=== PATIENT | female | born 1950 | race Caucasian/White ===

== ENCOUNTER 2022-02-22 16:50 | Outpatient (CLI) | payer MEDICARE, SELFPAY ==
[2022-02-22 18:37] LABS: Vitamin B12* 680 pg/mL (243-894)
== END 2022-02-22 16:51 | disposition home or self-care (01) ==
LOC: NFLDREF 16:51
PROVIDERS: PCP Internal Medicine; Visit Provider Internal Medicine
DX: G62.9 Polyneuropathy, unspecified (principal); R03.0 Elevated blood-pressure reading, without diagnosis of hypertension; N13.9 Obstructive and reflux uropathy, unspecified
CPT/HCPCS: 82607

== ENCOUNTER 2022-04-25 13:54 | Outpatient (CLI) | payer MEDICARE, SELFPAY ==
--- NOTE | 2022-04-25 14:00 | CRLHL7_ITS ---
For Patients: As a result of the Century Cures Act, medical imaging exams and procedure reports are released immediately into your electronic medical record. You may view this report before your referring provider. If you have questions, please contact your health care provider. BILATERAL SCREENING MAMMOGRAM WITH COMPUTER-AIDED DETECTION TECHNIQUE: CC and MLO views were obtained. These mammographic images have been obtained using full-field digital technique. These mammographic images were interpreted with the benefit of computer-aided detection. COMPARISON FILM: Baseline. No prior. FINDINGS: The breasts are almost entirely fatty IMPRESSION: There is no radiographic evidence for malignancy. ASSESSMENT: BI-RADS Category 2: Benign RECOMMENDATION: Routine screening mammogram in 1 year. A lay language report of this examination will be provided to the patient. Michael Perez M.D. Diagnostic Radiologist [email or web address] LAUREANO/Dictated by: Michael Perez MD @ 04/26/2022 8:35:00 AM (Electronically Signed)
--- NOTE | 2022-04-25 14:30 | CRLHL7_ITS ---
For Patients: As a result of the Century Cures Act, medical imaging exams and procedure reports are released immediately into your electronic medical record. You may view this report before your referring provider. If you have questions, please contact your health care provider. DXA BONE MINERAL DENSITY STUDY, 04/25/2022 Current height (in): 67.0. Weight (lb): 295.0. Menopause age: 48. Ethnicity: White. 1. Have you had a previous hip or vertebral fracture? No. 2. Have you had any fractures during your adult life which did not result from significant trauma (e.g., auto accident)? No. 3. Did either of your parents have a hip fracture? No. 4. Do you smoke? No. 5. Have you ever taken Glucocorticoids? No. 6. Do you have rheumatoid arthritis? No. 7. Do you have secondary osteoporosis? No. 8. Do you drink 3 or more alcoholic drinks per day? No. 9. Are you being treated for osteoporosis? No. 10. Have you ever taken any of the following medications: Actonel, Evista, Fosamax, Miacalcin, Reclast, Boniva, Forteo, HRT (i.e. estrogen/hormone therapy), Protelos, Prolia, Vitamin D, Calcium, other ??? please specify. ANSWER: Yes, Vitamin D. 11. Do you have any of the following medical conditions: Anorexia or bulimia, asthma or emphysema, end stage renal disease, hyperparathyroidism, any seizure disorders, cancer, inflammatory bowel diseases, hysterectomy, other ??? please specify. ANSWER: Yes, Hysterectomy. 12. What was your maximum height (inches)? 67. 13. Do you perform weight bearing exercise regularly? No. 14. Do you regularly consume dairy products? Yes. 15. Do you drink caffeinated beverages? No. 16. At what age did your period start? 14. 17. Are you premenopausal? No. 18. How many full term pregnancies have you had? 3. 19. Have you ever missed your period for more than 6 months in a row (not including or menopause)? No. TECHNIQUE: Bone mineral density study was performed using the [employer]. FINDINGS: The results of the study expressed as bone mineral density (BMD) are as follows: Lumbar spine L1 to L3: BMD: 1.081 g/cm2. T-score: 0.6. Z-score: 2.7. Neck Left: BMD: 0.666 g/cm2. T-score: -1.6. Z-score: 0.2. Right: BMD: 0.821 g/cm2. T-score: -0.3. Z-score: 1.6. Total Left: BMD: 0.763 g/cm2. T-score: -1.5. Z-score: 0.1. Right: BMD: 0.953 g/cm2. T-score: 0.1. Z-score: 1.6. IMPRESSION: Osteopenia. *Comparison exams done prior to 01/2020 were performed on different unit, [employer]. Michael Perez M.D. Diagnostic Radiologist [email or web address] CHULA/shivani JR/Dictated by: Michael Perez MD @ 04/26/2022 9:08:00 AM (Electronically Signed)
== END 2022-04-25 13:55 | disposition home or self-care (01) ==
LOC: MAMMO 13:54
PROVIDERS: PCP Internal Medicine; Visit Provider Internal Medicine
DX: Z12.31 Encounter for screening mammogram for malignant neoplasm of breast (principal); Z78.0 Asymptomatic menopausal state; M85.89 Other specified disorders of bone density and structure, multiple sites
CPT/HCPCS: 77063; 77067; 77080

== ENCOUNTER 2024-09-01 09:15 | Outpatient (RCR) | payer MEDICARE, SELFPAY ==
[2024-06-03 08:33] VITALS: BMI 43.4
[2024-06-03 12:25] VITALS: BMI 43.4
[2024-06-08 13:26] VITALS: BMI 43.4
[2024-06-10 08:29] VITALS: BMI 43.4
[2024-06-17 11:55] VITALS: BMI 43.4
[2024-06-22 07:54] VITALS: BMI 43.4
[2024-06-24 12:53] VITALS: BMI 43.4
[2024-07-01 10:50] VITALS: BMI 43.4
[2024-07-13 08:57] VITALS: BMI 42.0
[2024-07-15 08:15] VITALS: BMI 42.0
--- NOTE | 2024-07-15 10:41 | OT.OPLDN2 ---
OT Outpatient Lymphedema Daily Note OT Outpatient Lymphedema Daily Note* Start: 06/03/24 08:33 Freq: Status: Active Protocol: Document 07/15/24 08:15 MARCO A (Rec: 07/15/24 10:37 LULÚNidia [id number]) E-signed By Yamile Crane OTSarah/Elizabeth, TANT Type of Note Type of Note Type of Note Daily Note,Recert/Progress Note Visit Number 9 Comments PROGRESS NOTE 07/15/24 Insurance Information Insurance Information Insurance Information Medicare B,[facility] Height and Weight Height Height 170.18 cm Weight Weight 121.563 kg Weight Measurement Method Standing Scale BMI Body Mass Index (kg/m?) 42.0 BMI Classification Extreme Obesity Obesity Class III Home Program Home Program Home Program Compliant Home Program Specifics 1. Start by clearing the lymph nodes. Neck, under arm, groin , behind knee ? 10 times Armpit/Axilla ? 10 times, Groin ? 10 times, Knee ? 10 times 2. Diaphragmatic breathing ? Inhale through your nose. As you breathe in, your stomach should push out and your upper chest should move as little as possible. Exhale through your mouth, letting your stomach sink back in as you slowly bend at the hips. Repeat up to 5 repetitions. 3. Hip flexion a. Lying ? Bring your knee up toward your chest as far as possible, then back down. b. Sitting ? Bring your knee up toward your chest, then back down, as if marching in place. c. Standing ? While holding onto a stable surface, bring your knee up toward your chest as far as possible, then back down, as if marching in place 4. Hip abduction a. Lying on your back, slide your leg out to the side, then back in. Keep your knee straight & toes pointing straight up. b. Standing ? While holding onto a stable surface, bring your leg out to the side, then back in. Keep your knee straight & toes pointed forward. 5. Knee flexion and extension a. Lying ? Slide your heel up toward your hips, bending at your knees, then back down. b. Sitting ? Raise your foot up, straightening your knee as far as possible, then bend your knee back as far as possible. c. Standing ? While holding onto a stable surface, raise your foot back, bending your knee as far as possible, then straighten your knee and rest your foot on the floor. 6. Ankle pumps a. Lying ? Pull your foot/toes up toward you as far as possible, then point them down . b. Sitting ? Pull your foot/ toes up toward you as far as possible, then point them down . 7. Ankle circles Lying or sitting ? Move your ankle in a saxman clockwise, making as large of a saxman as possible. Repeat in counterclockwise direction. 8. Toe scrunches Lying or sitting ? Curl your toes down as far as possible, then pull them up as far as possible. Repeat all exercises in reverse order, starting with with #8 and ending with node clearing. OT OP Lymphedema Daily/Progress Note Current Condition/Medical Diagnosis Referring Provider Dipti Mckinnon PA-C Treatment Diagnosis Lymphedema, I89.0 Date Of Onset Gradual over time, last year pt had to get size 11 shoes ( was size 10) Other Precautions Weight: 02/22/22 patient was at 294 lb (patient's weight is down 17 lbs); She weighed 268 lbs when at the 's office on Jul 01, 2024 Medical History Medical History Cancer Treatment/Surgery Medical History Comments Morbid Obesity Lymphedema Prediabetes (Chronic 11/2021) R73.03: Dxed 12/01 Peripheral neuropathy (Chronic 11/2021) G62.9 12/01, referred to [facility]/Dr. Duque 12/31 with his plan noted to do lower extremity EMG (non- diagnostic due to lower extremity edema/lymphedema/ habitus), CORPORATE DEVELOPMENT OFFICER Suzi Daniels 03/02 felt symptoms consistent with large fiber neuropathy, and was doing blood work (which was normal). No plan for medication given only sporadic pain History of endometrial cancer (Chronic 2009) Z85.42 s/p BRITTNEY-BSO, pelvic and periaortic lymph node dissection and Patel urethropexy by Dr. Bryan for a Stage I, Grade 1 endometrial cancer 2009 Hyperlipidemia (Chronic) Borderline. LDL 129 on 12/01 NEW *07/01/24 diagnosed with A -fib and was referred to a [facility] K[facility] Boiler (apt made for Jul 2024) Surgical History Surgical History Hysterectomy in 2009 -History of endometrial cancer (Chronic 2009) Z85.42 s/p BRITTNEY-BSO, pelvic and periaortic lymph node dissection and Patel urethropexy by Dr. Bryan for a Stage I, Grade 1 endometrial cancer 2009 Medications Medications Only takes Vit D3 & a Daily Multivitamin Contraindications Contraindications General Family History Family History of Lymphedema Yes Family History of Lymphedema Comments Her mother had Lymphedema ( unknown cause) Daughter has Lymphedema from Lymph Node Removal Current Work Status Current Work Status Retired Subjective Subjective 07/15/24: Patient is here today for her 9th treatment session, plan of care began on 06/03/24. Patient has been successfully wearing her Short Stretch bandages daily since Jun 08, 2024 (>5 weeks). Last month, she ordered a wedge for elevating bilateral legs (does this daily for 1 hour or longer) and reports doing her HEP daily. She is very pleased with how much her legs are reducing in size. She states that she has been able to wear old shoes again that she hasn't worn in years. NEW *07/01/24 diagnosed with A-fib and was referred to a [facility] Boiler (apt made for Jul 2024). Despite all conservative measures taken over the past 5+ weeks ( compression to bilateral LE's, daily elevation for 1 hour or more a day and daily home exercise, patient still has significant trunk/abdominal/ hip/upper thigh swelling as well as bilateral LE fibrosis, hemosiderin staining, hyperkeratosis and limited skin mobility. 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 3 adult daughters, 1 in [place] and the other 2 in the [facility] Patient Difficulties Difficulties With Any Of The Following Walking,Dressing,Reaching Feet & Toes,Bathing/Showering, Preparing Meals,Sleeping In Bed Patient Difficulties Comments Stairs, Bending down to her feet, Transfers Impairments Impairments Loss of Mobility,Difficulties With ADLs,Limb Heaviness,Poor Clothing Fit Problem List Problem List Limited Knowledge of Lymphedema Treatment/Condition /Precautions,Limited Knowledge of Skin Care & Infection Precautions,Significant Risk For Infection For Lymphedema Related Complications,Does Not Have a HEP,Does Not Know How To Bandage For Limb Reduction, Does Not Have Appropriate Compression Garments For LT Management,Presents With Increased Fall Risk Secondary To Lymphedema,Presents With Impaired Mobility/ROM,Lack Of Caregiver Support Exercise History Does Patient Exercise Regularly No Exercise Comments Patient is open to any/all recommendations Pain Pain No Pain Comments Bilateral LE Neuropathy but patient states this is annoying more than painful Previous Treatment Previous Treatment/Current Home Program Patient had never been seen by a Lymphedema Therapist before Compression History Does Patient Currently Wear Compression No During Daytime Compression During Daytime Comments Patient is open to any/all recommendations Does Patient Currently Wear Compression No At Night Current Swelling (Location/Pitting/Texture) Pitting Scale: 0 = No pitting 1+ Tissue returns to normal almost immediately 2+ Tissue returns after 15-30 seconds 3+ Tissue returns after 1-1/2 minutes 4+ Tissue returns after 2-3 minutes N/A Tissue no longer pits due to induration Tissue texture: Soft or indurated Triggering Event & Start Date of CHRONIC, but worse every year Swelling/Lymphedema since 2009 Clinical Presentation Pitting/Texture From ankle to mid calf, tissue no longer pits due to induration, above this, tissue is soft and pitting ( bilaterally) Tissue lobs hang over the lateral malleolus (bilaterally ). Skin Changes Hemosiderin Staining, Hyperkeratosis,Stasis Dermatitis,Fibrosis,Limited Skin Mobility Skin Changes Comments R LE anterior heard is red, but no warm to the touch. Patient has never had a Cellulitis infection Capillary Refill Slow Stemmer and Capillary Refill Comments Patient wears her shoes (tied tightly) all day long everyday , this compression over the dorsum of her feet could be the reason she does not have a lot of edema present in the foot/and why it begins at the ankles Swelling Comments Hip measurement 06/22/24: 152 cm's Type of Swelling Secondary Staging Staging Stage 2 Circumferential Measurements Lower Extremity Left Lower Extremity Great Toe (in cm) 8.0 MTP (in cm) 24.7 Arch (in cm) 25.1 Ankle (in cm) 35.7 10 cm above Calcaneus Measurement 36.8 20 cm above Calcaneus Measurement 47.3 30 cm above Calcaneus Measurement 49 40 cm above Calcaneus Measurement 54.8 50 cm above Calcaneus Measurement 64 Total Girth in cm 345.4 Previous Total Girth in cm 389.7 Difference in Total Girth in cm -44.3 Right Lower Extremity Great Toe (in cm) 8.1 MTP (in cm) 25.5 Arch (in cm) 25 Ankle (in cm) 36.5 10 cm above Calcaneus Measurement 39 20 cm above Calcaneus Measurement 43.5 30 cm above Calcaneus Measurement 53 40 cm above Calcaneus Measurement 52.5 50 cm above Calcaneus Measurement 61.5 Total Girth in cm 344.6 Previous Total Girth in cm 377.3 Difference in Total Girth in cm -32.7 Comments/Additional Measurements Comments/Additional Measurements 07/15/24: Measurements have maintained since two days prior but no new reduction. 07/13/24: L LE is now at 345.4 cm's and R LE is at 344.6 cm' s 06/03/24: L LE 389.7 cm's then on 06/17 361.6 cm's and 06/22 patient measured at 348.8 cm's for a total reduction of 40.9 cm's RIGHT LE06/03/24: R LE 377. 3 cm's then on 06/17 360.4 cm' s and 06/22/24 patient measured at 346.6 cm's for a total reduction of 30.7 cm's Bilateral reduction total is at 71.6 cm's Treatment Manual Therapy Minutes (minutes) 63 Manual Therapy Comments Patient was positioned in semi -supine in the private treatment room for today's session with bilateral LE's elevated above the level of the heart. Therapist completed modified version of MLD sequence (as needed for increased tissue mobility, ROM , and decreased lymph girth), with LN facilitation at TDL, terminus, suboccipital to SCM lines, with lymph sweeping distal to proximal x 5-7 strokes each plane, with 2-3 sets at congested areas. Continued LN facilitation at abd with diaphragmatic breath, 4 abd quadrants, beltline, lateral trunk and ING>AX to support watershed flow. Segmental decongestive MLD at lateral hip, lateral thigh bundles, middle thigh, TFL to lateral trunk and calf in 3 segments, foot and ankle areas with toe web space facilitation, x10 reps each area. MFR to spongy edema at lateral thigh, hip areas. Finishing lymph sweep from distal LE to proximal trunk, AX and TN areas. Following MLD in supine, patient moved to unsupported short sit position , sitting at the edge of mat, therapist spent 3 mins on each knee (popliteal fossa) node clearing. (1) single piece of Size K Terta Circular Knitter was yessica on bilateral legs from ankle to the mid thigh, following by (1 ) CemiForm (3) Cellona with 50 % overlap, (3) 8 cm's SSB, (2) 10 cm SSB and (1) 12 cm SSB with 50% overlap to each leg. Wraps were secured in place using masking tape. Therapist set up a garment fitting appointment for patient which will be on Saturday, Jul 28 at 12:15 pm. DME Prescription was set to TRUMAN Solorzano for signature. Recommending that patient get chuy style compression to address abdominal area/butt/hips/ thighs and then bilateral LE compression for legs. Patient is an excellent candidate for a lymphedema pump to address her chronic Lymphedema. Total Occupational Therapy Minutes 63 Assessment Assessment 07/15/24: Patient is here today for her 9th treatment session, plan of care began on 06/03/24. Patient has been successfully wearing her Short Stretch bandages daily since Jun 08, 2024 (>5 weeks). Last month, she ordered a wedge for elevating bilateral legs (does this daily for 1 hour or longer) and reports doing her HEP daily. She is very pleased with how much her legs are reducing in size. She states that she has been able to wear old shoes again that she hasn't worn in years. NEW *07/01/24 diagnosed with A-fib and was referred to a [facility] Boiler (apt made for Jul 2024). Despite all conservative measures taken over the past 5+ weeks ( compression to bilateral LE's, daily elevation for 1 hour or more a day and daily home exercise, patient still has significant trunk/abdominal/ hip/upper thigh swelling as well as bilateral LE fibrosis, hemosiderin staining, hyperkeratosis and limited skin mobility. 6/9 goals in POC have been met. Patient is an excellent candidate for a lymphedema pump to address her chronic Lymphedema. A basic pump will not work for this client as it would only send fluid to the upper thighs/hips /abdomen region. Recommending that patient get a FlexiTouch in order to address trunk edema. Patient Goals Patient Goals Fit into my clothes and shoes Walk with less leg heaviness Short Term Goals (# of Weeks) 6 Short Term Goals Goal: Patient will understand lymphedema precautions to decrease risk of infection and further lymphedema related complications. -GOAL MET 06/22 Goal: Patient will develop a tolerance for wearing multi- layer, short stretch bandages between treatment sessions to facilitate limb decongestion. --GOAL MET 06/22/24 Goal: Patient will experience decreased pitting edema in order to improve tissue health and decrease risk for infection/cellulitis. --GOAL MET 06/22/24 Goal: Patient will perform HEP with minimal assistance in order to improve lymphatic flow and venous return Goal: Patient will perform self MLD protocol with minimal assistance to help reduce swelling and improve ROM and mobility. --GOAL MET 06/22/24 Mcc Goals (# of Weeks) 8 Patient Attendant Goals Goal: Patient will be independent with short-stretch compression bandaging for continued volume reduction and prevention of recurrence. - GOAL MET 06/22/24 Goal: Patient will experience increased ROM and mobility in order to improve safety and independence with transfers and mobility. -GOAL MET Goal: Patient will be independent with donning and doffing of compression garments which will enable regular daily garment wear. - progressing, continue Goal: Patient will achieve a reduction of cm from total measurements to enable functional improvements such as fitting into standard sized clothing and shoes, return to a prior level of functional mobility, improved balance, and reduced risk of falling. - progressing, continue Goal: Patient will be independent with HEP and lymphedema management to reduce risk for edema relapse and to reduce risk for infection. -progressing, continue Treatment Plan Treatment Plan Evaluation,Edema Control,Joint Mobilization,Manual Therapy, Therapeutic Exercise, Therapeutic Activities,Self- Care/Home Management,Education Expected Frequency 1-2x Week Expected Duration 12 weeks Occupational Therapy Billing Units Treatment Minutes Timed Treatment Minutes 63 Total Treatment Minutes 63 Billing Units Manual Therapy 4 Certification Statement Certification Statement I Certify That: Therapy Services Provided, Therapy Plan Established, Therapy Plan Reviewed
[2024-07-20 07:39] VITALS: BMI 42.0
[2024-07-23 12:40] VITALS: BMI 42.0
[2024-07-27 09:13] VITALS: BMI 42.0
[2024-07-29 08:09] VITALS: BMI 42.0
[2024-08-04 09:58] VITALS: BMI 42.0
[2024-08-11 09:21] VITALS: BMI 42.0
--- OUTSIDE RECORDS SUMMARY | 2024-08-13 08:10 | XMS_ITS | Clinical Summary ---
Author Organization [email or web address] Address [place], [place] [address] Care Team Providers Care Bench Chemist Name Role Phone Pcp, No Primary Care Provider Unavailabl e Allergies Active Allergy Reactions Criticality Noted Date Comments Fentanyl Vomiting 02/25/2022 Medications omega-3s/dha/epa/fis h oil/D3 (VITAMIN-D + OMEGA-3 ORAL) Take by mouth. Active Multivitamins with Fluoride (MULTI-VITAMIN ORAL) Take by mouth. Active apixaban (Eliquis) 5 mg tabletIndications:pr event thromboembolism in chronic atrial fibrillation Take 1 Tablet (5 mg) by mouth two times daily. 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 Office Visit [facility] [address] [place] [address] Dallin Hickey MD Arrived from Last 3 Months Immunizations Name Administration Dates Next Due Influenza, IIV3 (Age >=3 years) 05/11/2010 Social History Tobacco Use Types Packs/Day Years Used Date Smoking Tobacco: Never Smokeless Tobacco: Never Alcohol Use Standard Drinks/Week Comments Not Currently 0 (1 standard drink = 0.6 oz pur e alcohol) Comments No Sex and Gender Information Value Date Recorded Sex Assigned at Not on file Legal Sex Female 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 Gender Identity Not on file Sexual Orientation Not on file Obstetrics History Last Filed Vital Signs Vital Sign Reading Time Taken Comments Blood Pressure 145/81 02/25/2022 6:40 PM CDT Pulse 56 02/25/2022 7:58 PM CDT Temperature 36.7 C (98.1 F) 02/25/2022 3:25 PM CDT Respiratory Rate 18 02/25/2022 4:36 PM CDT Oxygen Saturation 98% 02/25/2022 7:58 PM CDT Inhaled Oxygen Concentration - - Weight 133.8 kg (295 lb) 02/25/2022 3:25 PM CDT Height 170.2 cm (5' 7) 02/25/2022 3:25 PM CDT Body Mass Index 46.2 02/25/2022 3:25 PM CDT Plan of Treatment Health Maintenance Due Date Last Done Comments Tdap 1962 Depression screening for age 12+ 1963 BMI (ht and wt on same day) for age 18+ 1969 Hepatitis C screening for ag e 18-79 1969 Pneumococcal series for age 50+ (1 of 2 - PCV) 1970 Tetanus booster 1971 Colonoscopy through age 75 1996 Lipids for age 45-75 1996 Mammogram for age 45-75 1996 Zoster (shingles) series for age 50+ (1 of 2) 2001 RSV vaccine for adults or (1 - Risk 60-74 years 1-dose series) 2011 DEXA/DXA scan for age 65+ 2016 Medicare Wellness for age 65+ 2016 Influenza for age 65+ 04/12/2024 05/11/2010 COVID-19 vaccine series Completed 05/05/20 24, 06/27/2023, 05/23/2022, Additional history exists Insurance [facility] MEDICARE ADVANTAGE MR MEDICARE RR PART B HB [place] [address] MEDICARE ADVANTAGE MR Advance Directives * Full Code (Latest Code Status on File) Date Activated Date Inactivated Comments 06/07/2010 2:36 PM 06/09/2010 10:56 PM * Full Code Date Activated Date Inactivated Comments 06/07/2010 9:32 AM 06/07/2010 2:36 PM Care Teams Bench Chemist Relationship Specialty Start Date End Date Pcp, No . PCP - General 02/22/23
[2024-08-13 12:38] VITALS: BMI 42.0
[2024-08-17 09:36] VITALS: BMI 42.0
[2024-08-20 10:43] VITALS: BMI 42.0
[2024-08-24 09:35] VITALS: BMI 42.0
[2024-08-27 10:04] VITALS: BMI 42.0
[2024-09-01 09:20] VITALS: BMI 42.0
== END 2024-09-01 12:50 | disposition home or self-care (01) ==
PROVIDERS: PCP Internal Medicine; Visit Provider Physician Assistant
DX: I89.0 Lymphedema, not elsewhere classified (principal); Z51.89 Encounter for other specified aftercare
CPT/HCPCS: 97110; 97140; 97166; 97535; X5282

== ENCOUNTER 2024-09-07 08:53 | Outpatient (CLI) | payer MEDICARE, SELFPAY | END 2024-09-07 08:54 | disposition home or self-care (01) | LOC: RAD 08:54 | PROVIDERS: PCP Registered Nurse; Visit Provider Internal Medicine Cardiovascular Disease | DX: I48.91 Unspecified atrial fibrillation (principal); I51.7 Cardiomegaly; I34.0 Nonrheumatic mitral (valve) insufficiency; I07.1 Rheumatic tricuspid insufficiency | CPT/HCPCS: 93306 ==

== ENCOUNTER 2024-12-24 11:35 | Outpatient (CLI) | payer MEDICARE, SELFPAY | END 2024-12-24 11:36 | disposition home or self-care (01) | LOC: NFLDREF 12-31 23:54 | PROVIDERS: PCP Registered Nurse; Referring Provider Registered Nurse; Visit Provider Internal Medicine Cardiovascular Disease | DX: I48.19 Other persistent atrial fibrillation (principal) | CPT/HCPCS: 80048; 84443 ==

== ENCOUNTER 2025-02-10 11:00 | Outpatient (RCR) | payer MEDICARE, SELFPAY ==
[2024-11-16 07:38] VITALS: BMI 42.4
[2024-11-16 13:03] VITALS: BMI 42.4
--- NOTE | 2024-11-16 13:05 | OT.OPLE2 ---
OT Outpatient Lymphedema Eval* OT Outpatient Lymphedema Eval* Start: 11/16/24 07:38 Freq: Status: Active Protocol: Document 11/16/24 07:38 MARCO A (Rec: 11/16/24 13:03 MARCO A [id number]) E-signed By NATALIIA Nunez/Elizabeth, AGGIE OT Outpatient Evaluation Details Type Type Eval Complexity Medium Insurance Information Insurance Information Insurance Information Medicare B,UCARE Height and Weight Height Height 170.18 cm Weight Weight 122.69 kg Weight Measurement Method Standing Scale BMI Body Mass Index (kg/m?) 42.4 BMI Classification Extreme Obesity Obesity Class III Home Program Home Program Home Program Compliant Home Program Specifics 1. Start by clearing the lymph nodes. Neck, under arm, groin , behind knee ? 10 times Armpit/Axilla ? 10 times, Groin ? 10 times, Knee ? 10 times 2. Diaphragmatic breathing ? Inhale through your nose. As you breathe in, your stomach should push out and your upper chest should move as little as possible. Exhale through your mouth, letting your stomach sink back in as you slowly bend at the hips. Repeat up to 5 repetitions. 3. Hip flexion a. Lying ? Bring your knee up toward your chest as far as possible, then back down. b. Sitting ? Bring your knee up toward your chest, then back down, as if marching in place. c. Standing ? While holding onto a stable surface, bring your knee up toward your chest as far as possible, then back down, as if marching in place 4. Hip abduction a. Lying on your back, slide your leg out to the side, then back in. Keep your knee straight & toes pointing straight up. b. Standing ? While holding onto a stable surface, bring your leg out to the side, then back in. Keep your knee straight & toes pointed forward. 5. Knee flexion and extension a. Lying ? Slide your heel up toward your hips, bending at your knees, then back down. b. Sitting ? Raise your foot up, straightening your knee as far as possible, then bend your knee back as far as possible. c. Standing ? While holding onto a stable surface, raise your foot back, bending your knee as far as possible, then straighten your knee and rest your foot on the floor. 6. Ankle pumps a. Lying ? Pull your foot/toes up toward you as far as possible, then point them down . b. Sitting ? Pull your foot/ toes up toward you as far as possible, then point them down . 7. Ankle circles Lying or sitting ? Move your ankle in a napaimute clockwise, making as large of a napaimute as possible. Repeat in counterclockwise direction. 8. Toe scrunches Lying or sitting ? Curl your toes down as far as possible, then pull them up as far as possible. Repeat all exercises in reverse order, starting with with #8 and ending with node clearing. OT OP Lymphedema Evaluation Current Condition/Medical Diagnosis Referring Provider Gertrudis Reyes, DNP, [employer] Medical Diagnoses Lymphedema, I89.0 Treatment Diagnosis Lymphedema, I89.0 Date Of Onset Chronic, 2009 Medical History Medical History Comments Lymphedema of lower extremity (Acute) I89.0 - Lymphedema, not elsewhere classified (ICD-10) New onset a-fib (Acute) I48.91 - Unspecified atrial fibrillation (ICD-10) Osteopenia (Acute) Osteopenia diagnosed by 1st ever DEXA, 05/03 M85.80 - Other specified disorders of bone density and structure, unspecified site ( ICD-10) Prediabetes (Chronic 11/2021) Dxed 12/01 R73.03 - Prediabetes (ICD-10) Peripheral neuropathy (Chronic 11/2021) 12/01, referred to [facility]/Dr. Duque 12/31 with his plan noted to do lower extremity EMG (non- diagnostic due to lower extremity edema/lymphedema/ habitus), S[employer]IOR [employer] Suzi Daniels 03/02 felt symptoms consistent with large fiber neuropathy, and was doing blood work (which was normal). No plan for medication given only sporadic pain G62.9 - Polyneuropathy, unspecified (ICD-10) Morbid obesity with body mass index (BMI) of 45.0 to 49.9 in adult (Chronic) E66.01 - Morbid (severe) obesity due to excess calories (ICD-10) Z68.42 - Body mass index [BMI] 45.0-49.9, adult History of endometrial cancer (Chronic 2009) s/p BRITTNEY-BSO, pelvic and periaortic lymph node dissection and Patel urethropexy by Dr. Boente for a Stage I, Grade 1 endometrial cancer 2009 Z85.42 - Personal history of malignant neoplasm of other parts of uterus (ICD -10) Hyperlipidemia (Chronic) Borderline. LDL 129 on 12/01 Surgical History Surgical History History of total abdominal hysterectomy and bilateral salpingo-oophorectomy (2009) Z90.710 - Acquired absence of both cervix and uterus (ICD-10 ) Z90.722 - Acquired absence of ovaries, bilateral (ICD-10) Z90.79 - Acquired absence of other genital organ(s) (ICD-10 ) Medications Medications cholecalciferol (vitamin D3) 50 mcg PO QDAY multivitamin 1 tab PO QAM Contraindications Contraindications General Current Work Status Current Work Status Retired Subjective Subjective Patient is a pleasant 74 year old female patient with PMH that includes but is not limited to: prediabetes, endometrial cancer, peripheral neuropathy, bilateral LE Lymphedema, Morbid obesity, A-fib (dx in 2023), Osteopenia, and hyperlipidemia. She lives alone (windowed) and has been Indep with her ADLs/ IADLs and still driving. At baseline she uses a walker for stability when she is up on her feet and walking around for extended distances, no device around her house/short distance walking. She states that she tries to go for walks , goal: at least 5 days a week depending on the weather, and she usually walks 3 blocks at a given duration of time. She denies any shortness of breath or chest pain at rest but does notice some heart flutters during physical activity (carrying/lifting/ moving items) & when she goes to bed at night (laying flat) she notices a difference in her heart beat. She saw a Food And Beverage Server due to being diagnosed with A-fib last year . Therapist was able to see the Echocardiogram report in the chart, 1. Normal left ventricular size, normal wall thickness, normal global systolic function, calculated EF of 56%. 2. Right ventricular cavity size is normal, global systolic RV function is normal. 3. Severely enlarged left atrium. 4. Moderate right atrial enlargement. Upon patient's initial office visit with Dr. Dallin Hickey on patient was told her CHADS2 -VASc score was a 2 which places her at high risk for future cardiovascular thromboembolic events. She was recommended to start on Eliquis 5 mg twice a day. She had a f/u apt with this same provider on the 19 of November (3 days) but this visit was re -scheduled for Dec 10 2024. She tried asking if a different Food And Beverage Server is available and was told no. Living Situation Current Living Situation Private Home/Apartment (Alone) Current Living Situation Comments Patient is fully Indep with all ADLs/ IADLs. Patient has a basement, usually doesn't go downstairs, but will go down backwards, holding onto the railing on one side. 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 3 adult daughters,1 in [place] and the other 2 in the [facility]. Patient is actively involved with her grandchildren and greatly enjoys hosting parties/ holidays at her house. Patient Difficulties Difficulties With Any Of The Following Walking,Dressing,Reaching Feet & Toes,Bathing/Showering, Preparing Meals Impairments Impairments Loss of Mobility,Difficulties With ADLs,Limb Heaviness,Poor Clothing Fit Problem List Problem List Significant Risk For Infection For Lymphedema Related Complications,Presents With Increased Fall Risk Secondary To Lymphedema,Presents With Impaired Mobility/ROM Exercise History Does Patient Exercise Regularly Yes Exercise Comments Has to be careful to not elevate her heartrate too much , patient has A-fib and becomes symptomatic with physical exertion Pain Pain No Previous Treatment Previous Treatment For Swelling/ MLD,Compression Pump, Lymphedema Compression Garment,Multi- Layer Compression Bandages, Exercise,Elevation Previous Treatment/Current Home Program Patient has been using her Lymphedema pump daily-81 treatments in a row (currently ). Was delivered to her house on 08/25/24. Compression History Does Patient Currently Wear Compression Yes During Daytime Compression During Daytime Comments [facility] knee high (when time for re-order in January, patient would like cranberry, cocoa and graphite colors) Also has Haydee's but due to toileting issues patient does not wear these consistently Does Patient Currently Wear Compression No At Night Compression At Night Comments Patient was ordered nighttime garments but she hasn't been wearing these Current Swelling (Location/Pitting/Texture) Pitting Scale: 0 = No pitting 1+ Tissue returns to normal almost immediately 2+ Tissue returns after 15-30 seconds 3+ Tissue returns after 1-1/2 minutes 4+ Tissue returns after 2-3 minutes N/A Tissue no longer pits due to induration Tissue texture: Soft or indurated Triggering Event & Start Date of Hysterectomy in 2009 -History Swelling/Lymphedema of endometrial cancer (Chronic 2010) s/p BRITTNEY-BSO, pelvic and periaortic lymph node dissection and Patel urethropexy by Dr. Bryan for a Stage I, Grade 1 endometrial cancer 2009. Clinical Presentation Pitting/Texture Patient presents with a combination of Lymphedema & Lipedema Tissue lobs only mildly hang over the lateral malleolus ( bilaterally). Skin Changes Hemosiderin Staining,Limited Skin Mobility Skin Changes Comments No weeping/no drainage Positive Stemmer's Sign Yes Capillary Refill Slow Swelling Comments Tissue in bilateral LE's is soft (dough like) Type of Swelling Secondary Circumferential Measurements Lower Extremity Left Lower Extremity Great Toe (in cm) 7.8 MTP (in cm) 24.5 Arch (in cm) 25.5 Ankle (in cm) 36.2 10 cm above Calcaneus Measurement 42 20 cm above Calcaneus Measurement 47.1 30 cm above Calcaneus Measurement 52.5 40 cm above Calcaneus Measurement 54.8 50 cm above Calcaneus Measurement 63 Total Girth in cm 353.4 Right Lower Extremity Great Toe (in cm) 7.9 MTP (in cm) 23.5 Arch (in cm) 25.2 Ankle (in cm) 36.8 10 cm above Calcaneus Measurement 41.5 20 cm above Calcaneus Measurement 47.2 30 cm above Calcaneus Measurement 50.3 40 cm above Calcaneus Measurement 53 50 cm above Calcaneus Measurement 62 Total Girth in cm 347.4 Comments/Additional Measurements Comments/Additional Measurements (Initial EVAL from 06/03/24 (R LE: 377.3 cm's). Upon Discharge on 09/03/24 patent's L LE was 348.5 cm's & today on 11/16/24 patient is at 353.4 cm 's (+4.9 cm's) (Initial EVAL from 06/03/24 L LE: 389.7 cm's). Upon Discharge on 09/03/24 patent's R LE was 346.4 cm's & today on 11/16/24 patient is at 347.4 cm 's (+1 cm's) Total increase from last apt 10.5 weeks ago (discharge visit on 09/03/24) is 5.9 cm's bilaterally. Since this total is less than 10 cm's and patient is not reporting any discomfort/new problems, plan will be to keep patient on a surveillance program and only see her quarterly. Assessment Assessment Total increase from last apt 10.5 weeks ago (discharge visit on 09/03/24) is 5.9 cm's bilaterally. Since this total is less than 10 cm's and patient is not reporting any discomfort/new problems, plan will be to keep patient on a surveillance program and only see her quarterly. See grid above for measurements (with comment on initial measurements on first Eval & D/C on 09/01/24). Patient Goals Patient Goals Maintain the progress I've made with my legs, they are so much squeegee tender, my walking is better Short Term Goals 1. Patient will be independent in self-management of her lymphedema through consistency with HEP, self MLD OR use of lymphedema pump and use of compression garments to reduce risk for edema relapse and to reduce risk for infection. - 12 weeks Director Field Services Goals 2. Patient to achieve/maintain at least 90 percent of the lymphedema reduction from her initial EVAL (06/02/24). Treatment Plan Treatment Plan Evaluation,Edema Control,Joint Mobilization,Manual Therapy, Therapeutic Exercise,Self-Care /Home Management,Education Expected Frequency As Needed Expected Duration 90 days Certification Certification Statement I Certify That: Therapy Services Provided, Therapy Plan Established, Therapy Plan Reviewed Certification Information Clinic ID # [id number] Initial Certification Date 11/16/24 Recertification Due Date 02/14/25 Provider Signature Required Yes Provider Signature Shows Agreement With POC & Medical Necessity Physician NPI Number Write NPI# Here Physician Comment/Change Comment or Changes Physician Signature & Date Requested Please Sign/Date Here
== END 2025-02-11 10:13 | disposition home or self-care (01) ==
PROVIDERS: PCP Registered Nurse; Visit Provider Registered Nurse
DX: I89.0 Lymphedema, not elsewhere classified (principal); Z51.89 Encounter for other specified aftercare
CPT/HCPCS: 97166; 97535

== ENCOUNTER 2025-03-15 08:53 | Outpatient (CLI) | payer MEDICARE, SELFPAY | END 2025-03-15 08:54 | disposition home or self-care (01) | LOC: NFLDREF 08:54 | PROVIDERS: PCP Family Medicine; Visit Provider Family Medicine | DX: Z01.818 Encounter for other preprocedural examination (principal) | CPT/HCPCS: 80048 ==

== ENCOUNTER 2025-05-27 10:04 | Outpatient (CLI) | payer MEDICARE, SELFPAY ==
--- NOTE | 2025-06-22 12:11 | W.PM.SLEEP ---
Sleep Study Details Details Interpreting Provider: Didi Date of Sleep Study: 05/27/25 Sleep Study Details: STUDY TYPE: Home unattended ? BMI:? 40.25 ORDERING PROVIDER:Kendrick Tolbert INDICATION:? Concerns for sleep apnea ? SLEEP SUMMARY:? 530 minutes monitored RESPIRATORY SUMMARY:? AHI 5.2 per rule 1A, 3.1 per CMS guideline Low oxygen 87 0.2% of study oxygen less than 90% Snoring 90.6% PERIODIC LIMB MOVEMENTS OF SLEEP:? Not recorded CARDIAC:? Range 47-107, mean 71.4 beats per minute IMPRESSION:? Negative study per CMS guideline, mild apnea per rule 1A RECOMMENDATION: If there is significant concern for obstructive sleep apnea recommend an in-lab study.
== END 2025-05-27 10:05 | disposition home or self-care (01) ==
LOC: SLEEP 10:05
PROVIDERS: PCP Family Medicine; Visit Provider Otolaryngology
DX: G47.19 Other hypersomnia (principal)
CPT/HCPCS: 95806